=== PATIENT | female | born 1965 | race Caucasian/White ===

== ENCOUNTER 2022-01-02 12:08 | Emergency (ER) | payer BC, OTHER ==
[~2022-01-02] VITALS: Ht 154.9 cm; Wt 99.8 kg
[2022-01-02] MEDS ORDERED: PRED50TA PO (13:40)
--- NOTE | 2022-01-02 13:43 | NUR ---
Patient discharged to home in stable condition. Written and verbal after care instructions given. Patient verbalizes understanding of instructions. Stressed follow up or return to ER for worsening s/s.PT WALKS IN STEADY GAIT.
[2022-01-02 13:44] VITALS: BP 111/61
== END 2022-01-02 13:45 | disposition home or self-care (01) ==
LOC: ER 12:08
DX: M54.30 Sciatica, unspecified side (principal); M54.12 Radiculopathy, cervical region; J44.9 Chronic obstructive pulmonary disease, unspecified; G47.30 Sleep apnea, unspecified
CPT/HCPCS: A4663

== ENCOUNTER 2022-01-09 14:31 | Emergency (ER) | payer BC ==
[~2022-01-09] VITALS: Ht 154.9 cm; Wt 100.7 kg
[~2022-01-09 14:31] MED LIST: PRED50TA PO
[2022-01-09] MEDS ORDERED: HYDR-3980 PO (15:53)
[2022-01-09] MEDS ORDERED: GABA300C PO (15:53)
--- NOTE | 2022-01-09 15:57 | NUR ---
Patient discharged to home in stable condition. Written and verbal after care instructions given. Patient verbalizes understanding of instructions. Stressed follow up or return to ER for worsening s/s.
[2022-01-09] MEDS ORDERED: HYDROCODONE/APAP 10-325 MG TABLET PO ONE (16:00)
== END 2022-01-09 15:57 | disposition home or self-care (01) ==
LOC: ER 14:31
DX: M54.40 Lumbago with sciatica, unspecified side (principal); J44.9 Chronic obstructive pulmonary disease, unspecified; Z88.5 Allergy status to narcotic agent; Z88.8 Allergy status to other drugs, medicaments and biological substances; Z91.048 Other nonmedicinal substance allergy status; Z79.899 Other long term (current) drug therapy
CPT/HCPCS: A4663